=== PATIENT | male | born 1975 | race Two or more races ===

== ENCOUNTER 2021-08-17 11:32 | Emergency (ER) | payer OTHER ==
[~2021-08-17] VITALS: Ht 180.3 cm; Wt 88.8 kg
[2021-08-17 11:32] VITALS: BP 137/78
[2021-08-17] MEDS ORDERED: IV NORMAL SALINE 1,000ML 1,000 ML IV ONE (12:30)
--- NOTE | 2021-08-17 13:05 | PHYS DOC ---
Adult General Chief Complaint Chief Complaint: FATIGUE HPI HPI Patient is a 46-year-old male who presents to the emergency department complaining of ongoing COVID-19 virus symptoms. Patient reports he was diagnosed 11 days ago with COVID-19 virus, reports he continues to get fatigued throughout the day, continues to have difficulty walking up steps without becoming short of breath, denies other ongoing symptoms such as he is no longer having fever or chills, no longer having generalized body aches, he no longer has problems smelling or tasting things, patient reports he is worried he might need a medication sex ed oxygen to help him while he is at home. Patient denies chest pains, shortness of breath at rest, chest or nasal congestion, denies other physical complaints or physical concerns. Review of Systems Review of Systems 14 body systems of review of systems have been reviewed. See HPI for pertinent positives and negative responses, otherwise all other systems are negative, nonpertinent or noncontributory. Constitutional: Negative except as outlined in HPI above. Skin: Negative except as outlined in HPI above. Eyes: Negative except as outlined in HPI above. HENT: Negative except as outlined in HPI above. Respiratory: Negative except as outlined in HPI above. Cardiovascular: Negative except as outlined in HPI above. GI: Negative except as outlined in HPI above. : Negative except as outlined in HPI above. Musculoskeletal: Negative except as outlined in HPI above. Integument: Negative except as outlined in HPI above. Neurologic: Negative except as outlined in HPI above. Endocrine: Negative except as outlined in HPI above. Lymphatic: Negative except as outlined in HPI above. Psychiatric: Negative except as outlined in HPI above. Current Medications Current Medications Current Medications Medications (Trade) Dose Ordered Sig/Munira Start Time Stop Time Status Last Admin Dose Admin Sodium Chloride 1,000 ml @ 1,000 mls/hr 1X ONCE 08/17/21 12:30 08/17/21 13:29 Allergies Allergies Allergies Coded Allergies Type Severity Reaction Last Updated Verified No Known Drug Allergies 08/17/21 No Physical Exam Physical Exam Constitutional: Well developed, well nourished, no acute distress, non-toxic appearance. 46-year-old male in no apparent distress. HENT: Normocephalic, atraumatic. Eyes: Conjunctiva normal, no discharge. Neck: Normal range of motion, no stridor. Cardiovascular: No cyanosis appreciated, distal cap refill less than 2 seconds. Lungs & Thorax: Patient is in no respiratory distress, no audible adventitious lung sounds appreciated. Abdomen: Nontender, no abnormalities noted. Skin: Warm, dry, no erythema, no rash. Back: No tenderness, no deformities. Extremities: No tenderness, no cyanosis, no clubbing, ROM intact, no edema. Neurologic: Alert and oriented X 3, normal motor function, normal sensory function, no focal deficits noted. Psychologic: Affect normal, judgement normal, mood normal. EKG EKG EKG performed at 1257 by ED nursing staff shows a sinus tachycardia without other ectopy heart rate 107 bpm, OR interval 0.158, QTc interval 0.403, no acute STEMI, no ACS, no acute ischemia appreciated, EKG interpreted by ED attending physician Dr. Russ. Radiology/Procedures Radiology/Procedures SEX: M EXAM STATUS: REG ER ORD. PHYSICIAN: MARLENE BARBOUR APRN REASON: Elevated D-dimer, COVID X 11 DAYS AGO, PAIN WITH INSPIRATION PROCEDURE: CT ANGIOGRAPHY CHEST CT angiogram of the chest with contrast: Reason for examination: Elevated d-dimer. Covid positive 11 days ago. Pain with inspiration. Helical images were obtained through the chest with intravenous administration of 100 cc Omnipaque 350 using PE protocol. 3-D MIPS reconstruction was performed in sagittal and coronal planes. Exposure: One or more of the following individualized dose reduction techniques were utilized for this examination: 1. Automated exposure control 2. Adjustment of the mA and/or kV according to patient size 3. Use of iterative reconstruction technique. No abnormality seen at the thyroid gland. The trachea and mainstem bronchi show no intraluminal lesions. No abnormality seen at the esophagus. The thoracic aorta shows no aneurysmal dilatation or dissection. The heart size is normal with no pericardial effusion. There is no evidence of pulmonary embolus. The lung falcon show diffuse patchy groundglass opacities bilaterally consistent with Covid pneumonia. No pleural effusions or pneumothorax are seen. No acute bony abnormalities are seen. No focal lesions are seen at the liver, spleen, adrenal glands or pancreas. IMPRESSION: Diffuse patchy groundglass opacities bilaterally consistent with Covid pneumonia. No evidence of pulmonary embolus. Electronically signed by: Isatu Hutchinson MD (08/17/2021 3:40 PM) AVIS STATUS: REG ER ORD. PHYSICIAN: MARLENE BARBOUR APRN REASON: Shortness of breath, hx covid x 11 days ago PROCEDURE: CHEST AP ONLY EXAMINATION: Chest radiograph. VIEWS: 1 COMPARISON: None. INDICATION:46 years, Male, Shortness of breath. History of Covid 19 pneumonia 11 days ago.. FINDINGS: Normal cardiomediastinal silhouette. Multifocal bilateral patchy airspace opacities. No pleural effusion or pneumothorax. No acute osseous process. IMPRESSION: Multifocal bilateral patchy airspace opacities, most consistent with multifocal pneumonia. Electronically signed by: Mandeep Sinclair MD (08/17/2021 2:08 PM) [id number] Heart Score C/O Chest Pain: No Risk Factors: Risk Factors: DM, Current or recent (<one month) smoker, HTN, HLP, family history of CAD, obesity. Risk Scores: Risk Factors: DM, Current or recent (<one month) smoker, HTN, HLP, family history of CAD, obesity. Course & Med Decision Making Course & Med Decision Making Pertinent Labs and Imaging studies reviewed. (See chart for details) 46-year-old male, vital signs reviewed, resents emerged part for ongoing COVID- 19 virus symptomology. Patient's physical exam is unremarkable, patient does have tachycardic heart rate at 120 however O2 sat is within normal limits, blood pressure respiratory rate and temperature within normal limits, will order EKG, chest x-ray, CBC, BMP, D-dimer. High-sensitivity troponin I Patient is EKG and cardiac enzymes unremarkable, CBC and BMP unremarkable, patient's D-dimer is elevated, will order CT angio chest to rule out pulmonary emboli, patient's chest x-ray consistent with patient's reported COVID-[address] angio chest nonconcerning for pulmonary emboli, discussed findings with patient, will order albuterol MDI to help with shortness of breath sensations, recommended follow-up with primary care, return to ER precautions and concerns, patient gave verbal understanding of and is amenable to ED discharge planning. Discussed with the patient all findings and diagnostic testing as well as the need to follow-up with their primary care provider for further evaluation and treatment or return to the ED if any new or worsening symptoms. Strict return precautions were also discussed at length, the patient voiced understanding and agreement with the discharge planning. The patient was nontoxic in appearance, in no apparent distress, and hemodynamically stable at the time of disposition. Dragon Disclaimer Dragon Disclaimer This electronic medical record was generated, in whole or in part, using a voice recognition dictation system. Departure Departure: Impression: Primary Impression: COVID-19 virus infection Additional Impression: Shortness of breath Disposition: HOME / SELF CARE / HOMELESS Condition: GOOD Referrals: PCP,NO (PCP) Additional Instructions: You were seen today in the emergency department for shortness of breath on exertion, you were diagnosed with a Covid virus 11 days ago, a chest x-ray and lab work were done today which indicated concerning signs of a blood clot in your lung, therefore a CT angiogram of your chest was performed today and did not find any blood clots in your lungs, this is a good sign. Your symptoms of shortness of breath are related to your COVID-19 virus infection. As we discussed you may feel the symptoms for many weeks to come, you may use ykvg-gpi-mkxaxay medications to help ease your symptomology such as Tylenol and/or ibuprofen. I am prescribing you a new medication called albuterol, this comes in an inhaler apparatus that you may use every 4-6 hours as needed for shortness of breath. You had indicated you did not have a primary care provider, please consider using the [facility] group located at [address] [place] [address] [place] [id number], their telephone number is area code [phone], please call this Thursday to establish primary care for ongoing health care management. Return to the emergency department for worsening symptoms or other concerns. Thank you for visiting our Emergency Department. It was a pleasure taking care of you today in the emergency department and we appreciate you trusting us with your care. If any additional problems come up don't hesitate to return to visit us. Please follow up with your primary care provider so they can plan additional care if needed and know about the problem that you had. If symptoms worsen come back to the Emergency Department. Any concerning symptoms that start such as chest pain, shortness of air, weakness or numbness on one side of the body, running high fevers or any other concerning symptoms return to the ER. You have been tested for or diagnosed with COVID-19. It is an infection caused by a new type of coronavirus. COVID-19 will cause cold-like or mild flu symptoms in most. It can cause more severe symptoms like problems breathing in some. There is no treatment for COVID-19. The body will clear the infection over time. Self-care will help to ease discomfort. Steps to Take: Self-Care Rest as needed. Healthy habits may help you feel better. Steps include: Choose healthy foods including fruits and vegetables. Drink water throughout the day. Get plenty of sleep each night. If you smoke, try to quit. It may ease breathing. Avoid alcohol. Keep Others Healthy The virus can spread to others. Droplets are released every time you sneeze or c ough. The droplets can get into the mouth, nose, or eyes of people near you and lead to infection. To lower the chances of spreading COVID-19 to others: Stay at home until your doctor has said it is safe to leave. If you tested positive this will mean staying isolated until both of the following are true: At least 7 days have passed since the start of illness. You are free of fever for at least 72 hours without the use of medicine. During this time: - Avoid public areas, events, or transportation. Do not return to work or school until your doctor has said it is safe to do so. - Call ahead if you need to go to a medical center. Let them know you may have COVID-19. It will help them guide you where to go. They may also ask you to wear a facemask when you come to the office. - If you call for emergency medical services, let them know you may have COVID- 19. While at home: - Try to avoid close contact with others. Stay about 6 feet away. - If possible, spend most of your time in a separate room from others. - Use a face mask if you will be in close contact with others such as sharing a room or vehicle. - Have someone wipe down common surfaces in the home. Use household front end drupal developer every day on areas like doorknobs, counters, or sinks. - Cough or sneeze into a tissue. Throw the tissue away right after use. If a tissue is not available, cough or sneeze into your elbow. - Wash your hands often. Wash them after sneezing or coughing. Use soap and water and wash for at least 20 seconds. Alcohol based hand hat cleaner can be used if soap and water is not available. - Do not prepare food for others. Avoid sharing personal items like forks, spoons, or toothbrushes. - Avoid close contact with pets while you are sick. There is no evidence of the virus passing to pets. This is a safety step until more is known about this virus. Isolation can be frustrating. Social interaction can help. Keep in touch with friends and family through phone and tech options. You can still interact with others in your home, just keep a safe distance of about 6 feet. Follow-up: Your doctors office will check in with you to see if there are any changes in your health. You may be asked to keep track of symptoms to share with them. They will also let you know when you are clear to be in public again. Problems to Look Out For: Contact your doctor if your recovery is not going as you expect. Get emergency care if you have problems such as: - Trouble breathing - Nonstop chest pain or pressure - Changes in awareness, confusion, or problems waking - Lips or face have bluish color - Worsening of symptoms If you think you have an emergency, call for emergency medical services right away. As taken from Replaced by [facility] EMERGENCY DEPARTMENT GENERAL DISCHARGE INSTRUCTIONS Thank you for coming to [facility] (ED) today and trusting us with you care. We trust that you had a positivie experience in our Emergency Department. If you wish to speak to the department management, you may call the director at [phone]. YOUR FOLLOW UP INSTRUCTIONS ARE FOLLOWS: 1. Do you have a private Doctor? If you do not have a private doctor, please ask for a resource list of physicians or clinics that may be able to assist you with follow up care. 2. The Emergency Physician has interpreted your x-rays. The X-Ray specialist will also review them. If there is a change in the findings, you will be notified in 48 hours when at all possible. 3. A lab test or culture has been done, your results will be reviewed and you will be notified if you need a change in treatment. ADDITIONAL INSTRUCTIONS AND INFORMATION: 1. Your care today has been supervised by a physician who is specially trained in emergency care. Many problems require more than one evaluation for a complete diagnosis and treatment. We recommend that you schedule your follow up appointment as recommended to ensure complete treatment of you illness or injury. If you are unable to obtain follow up care and continue to have a problem, or if your condition worsens, we recommend that you return to the ED. 2. We are not able to safely determine your condition over the phone nor are we able to give sound medical advice over the phone. For these safety reasons, if you call for medical advice we will ask you to come to the ED for further evaluation. 3. If you have any questions regarding these discharge instructions please call the ED at [phone]. SAFETY INFORMATION: In the interest of safety, wellness, and injury prevention; we encourage you to wear your sealbelt, if you smoke; quite smoking, and we encourage family to use a protective helmet for bicycling and other sporting events that present an increased risk for head injury. IF YOUR SYMPTOMS WORSEN OR NEW SYMPTOMS DEVELOP, OR YOU HAVE CONCERNS ABOUT YOUR CONDITION; OR IF YOUR CONDITION WORSENS WHILE YOU ARE WAITING FOR YOUR FOLLOW UP APPOINTMENT; EITHER CONTACT YOUR PRIMARY CARE DOCTOR, THE PHYSICIAN WHOSE NAME AND NUMBER YOU WERE GIVEN, OR RETURN TO THE ED IMMEDIATELY. Scripts Albuterol Sulfate (PROAIR HFA INHALER) 8.5 Gm Hfa.aer.ad 2 PUFF IH PRN Q4-6HRS PRN for wheezing for 21 Days, #1 INHALER 0 Refills Prov: MARLENE BARBOUR APRN 08/17/21 Problem Qualifiers MARLENE BARBOUR APRN Aug 17, 2021 13:05
--- NOTE | 2021-08-17 13:10 | EKG ---
[address] [address] Test Date: 2021-08-17 Test Time: 12:57:06 Pat Name: HERON BANKS Department: Room: Gender: M Education Consultant: : 1975 Requested By: MARLENE BARBOUR Order Number: [id number] Reading MD: Solis Lee Measurements Intervals Halma Rate: 107 P: 54 WV: 158 QRS: 63 QRSD: 80 T: 27 QT: 298 QTc: 403 Interpretive Statements SINUS TACHYCARDIA Electronically Signed On 08-18-2021 10:10:20 POWER ELECTRONICS ENGINEER by Solis Lee
[2021-08-17 13:54] LABS: BASO % 0 % (0-3); EOS % 0 % (0-3); HEMATOCRIT 50.3 % (39.0-53.0); HEMOGLOBIN 17.2 g/dL (13.0-17.5); LYMPH # 0.7 x10^3/uL (1.0-4.8); LYMPH % 10 % (24-48); MEAN CORPUSCULAR HEMOGLOBIN 30 pg (25-35); MEAN CORPUSCULAR HGB CONC 34 g/dL (31-37); MEAN CORPUSCULAR VOLUME 89 fL (79-100); MONO # 0.3 x10^3/uL (0.0-1.1); MONO % 5 % (0-9); NEUT # 5.7 x10^3uL (1.8-7.7); NEUT % 85 % (31-73); PLATELET COUNT 180 x10^3/uL (140-400); RED BLOOD COUNT 5.66 x10^6/uL (4.30-5.70); RED CELL DISTRIBUTION WIDTH 13.4 % (11.5-14.5); WHITE BLOOD COUNT 6.8 x10^3/uL (4.0-11.0)
--- NOTE | 2021-08-17 14:10 | RAD ---
EXAMINATION: Chest radiograph. VIEWS: 1 COMPARISON: None. INDICATION:46 years, Male, Shortness of breath. History of Covid 19 pneumonia 11 days ago.. FINDINGS: Normal cardiomediastinal silhouette. Multifocal bilateral patchy airspace opacities. No pleural effus ion or pneumothorax. No acute osseous process. IMPRESSION: Multifocal bilateral patchy airspace opacities, most consistent with multifocal pneumonia. Electronically signed by: Mandeep Sinclair MD (08/17/2021 2:08 PM) [id number]
[2021-08-17 14:14] LABS: POTASSIUM ISTAT 4.8 mmol/L (3.5-5.0)
[2021-08-17] MEDS ORDERED: IOHEXOL 350 MG/ML 100 ML VIAL. IV ONE (15:00)
--- NOTE | 2021-08-17 15:43 | RAD ---
CT angiogram of the chest with contrast: Reason for examination: Elevated d-dimer. Covid positive 11 days ago. Pain with inspiration. Helical images were obtained through the chest with intravenous administration of 100 cc Omnipaque 35 0 using PE protocol. 3-D MIPS reconstruction was performed in sagittal and coronal planes. Exposure: One or more of the following individualized dose reduction techniques were utilized for thi s examination: 1. Automated exposure control 2. Adjustment of the mA and/or kV according to patient size 3. Use of iterative reconstruction technique. No abnormality seen at the thyroid gland. The trachea and mainstem bronchi show no intraluminal lesions. No abnormality seen at the esophagus. The thoracic aorta shows no aneurysmal dilatation or dissection. The heart size is normal with no per icardial effusion. There is no evidence of pulmonary embolus. The lung falcon show diffuse patchy groundglass opacities bilaterally consistent with Covid pneumonia . No pleural effusions or pneumothorax are seen. No acute bony abnormalities are seen. No focal lesions are seen at the liver, spleen, adrenal glands or pancreas. IMPRESSION: Diffuse patchy groundglass opacities bilaterally consistent with Covid pneumonia. No evidence of pulmonary embolus. Electronically signed by: Isatu Hutchinson MD (08/17/2021 3:40 PM) AVIS
[2021-08-17] MEDS ORDERED: ALBU2.5V8 IH (16:06)
[2021-08-17 16:58] LABS: CALCIUM 8.6 mg/dL (8.5-10.1); CREATININE 0.9 mg/dL (0.7-1.3); GFR 91.3; POTASSIUM 4.9 mmol/L (3.5-5.1)
[2021-08-17 17:15] LABS: ALBUMIN 3.2 g/dL (3.4-5.0); ALBUMIN/GLOBULIN RATIO 0.7 (1.0-1.7); TOTAL BILIRUBIN 0.5 mg/dL (0.2-1.0); TOTAL PROTEIN 8.1 g/dL (6.4-8.2)
== END 2021-08-17 16:20 | disposition home or self-care (01) ==
LOC: ER 11:32
DX: U07.1 COVID-19 (principal)
CPT/HCPCS: 36415; 71045; 71275; 80047; 80053; 83880; 84484; 85025; 85379; 93005; 96360; 99285; J7030; Q9967